=== PATIENT | male | born 1965 | race Caucasian/White ===

== ENCOUNTER 2022-11-26 10:09 | Outpatient (CLI) | payer BC, SELFPAY | END 2022-11-26 10:10 | disposition home or self-care (01) | PROVIDERS: PCP Family Medicine; Visit Provider Family Medicine | DX: R53.83 Other fatigue (principal); I10 Essential (primary) hypertension; E78.5 Hyperlipidemia, unspecified; E03.9 Hypothyroidism, unspecified | CPT/HCPCS: 80053; 80061; 84153; 84270; 84402; 84403; 84443 ==

== ENCOUNTER 2023-02-14 15:08 | Outpatient (CLI) | payer BC, SELFPAY | END 2023-02-14 15:09 | disposition home or self-care (01) | LOC: NFLDREF 02-16 16:18 | PROVIDERS: PCP Family Medicine; Referring Provider Family Medicine; Visit Provider Family Medicine | DX: E03.9 Hypothyroidism, unspecified (principal); R79.89 Other specified abnormal findings of blood chemistry | CPT/HCPCS: 80053; 84270; 84402; 84403; 84443 ==

== ENCOUNTER 2023-05-06 09:26 | Outpatient (CLI) | payer BC, SELFPAY | END 2023-05-06 09:27 | disposition home or self-care (01) | LOC: NFLDREF 05-07 02:19 | PROVIDERS: PCP Family Medicine; Referring Provider Family Medicine; Visit Provider Family Medicine | DX: E03.9 Hypothyroidism, unspecified (principal); R79.89 Other specified abnormal findings of blood chemistry | CPT/HCPCS: 84270; 84402; 84403; 84443 ==

== ENCOUNTER 2023-08-04 08:31 | Outpatient (CLI) | payer BC, SELFPAY | END 2023-08-04 08:32 | disposition home or self-care (01) | LOC: NFLDREF 08-05 07:26 | PROVIDERS: PCP Family Medicine; Visit Provider Family Medicine | DX: E03.9 Hypothyroidism, unspecified (principal); R79.89 Other specified abnormal findings of blood chemistry | CPT/HCPCS: 84270; 84402; 84403; 84443 ==

== ENCOUNTER 2023-08-10 07:59 | Outpatient (CLI) | payer BC, SELFPAY | END 2023-08-10 08:00 | disposition home or self-care (01) | LOC: NFLDREF 08-12 07:45 | PROVIDERS: PCP Family Medicine; Referring Provider Family Medicine; Visit Provider Family Medicine | DX: R79.89 Other specified abnormal findings of blood chemistry (principal); E78.5 Hyperlipidemia, unspecified | CPT/HCPCS: 80076 ==

== ENCOUNTER 2023-11-18 08:33 | Outpatient (CLI) | payer BC, SELFPAY | END 2023-11-18 08:34 | disposition home or self-care (01) | LOC: NFLDREF 11-20 02:59 | PROVIDERS: PCP Family Medicine; Referring Provider Family Medicine; Visit Provider Family Medicine | DX: R79.89 Other specified abnormal findings of blood chemistry (principal); E03.9 Hypothyroidism, unspecified; E78.5 Hyperlipidemia, unspecified; Z79.890 Hormone replacement therapy; Z12.5 Encounter for screening for malignant neoplasm of prostate | CPT/HCPCS: 80053; 80061; 84270; 84402; 84403; 84443; G0103 ==

== ENCOUNTER 2024-03-01 09:30 | Outpatient (CLI) | payer BC, SELFPAY | END 2024-03-01 09:31 | disposition home or self-care (01) | LOC: NFLDREF 03-02 09:21 | PROVIDERS: PCP Family Medicine; Referring Provider Family Medicine; Visit Provider Family Medicine | DX: I10 Essential (primary) hypertension (principal); R79.89 Other specified abnormal findings of blood chemistry | CPT/HCPCS: 80076; 84270; 84402; 84403 ==

== ENCOUNTER 2024-06-11 10:00 | Outpatient (CLI) | payer BC, SELFPAY | END 2024-06-11 10:01 | disposition home or self-care (01) | LOC: NFLDREF 06-13 02:13 | PROVIDERS: PCP Family Medicine; Referring Provider Family Medicine; Visit Provider Family Medicine | DX: R53.83 Other fatigue (principal); R79.89 Other specified abnormal findings of blood chemistry; R73.01 Impaired fasting glucose | CPT/HCPCS: 80076; 84270; 84402; 84403 ==

== ENCOUNTER 2024-11-08 09:11 | Outpatient (CLI) | payer BC, SELFPAY | END 2024-11-08 09:12 | disposition home or self-care (01) | LOC: NFLDREF 11-12 15:21 | PROVIDERS: PCP Family Medicine; Referring Provider Family Medicine; Visit Provider Family Medicine | DX: E03.9 Hypothyroidism, unspecified (principal); I10 Essential (primary) hypertension; E78.5 Hyperlipidemia, unspecified; R79.89 Other specified abnormal findings of blood chemistry; Z12.5 Encounter for screening for malignant neoplasm of prostate | CPT/HCPCS: 80053; 80061; 84270; 84402; 84403; 84443; G0103 ==